=== PATIENT | male | born 2000 | race Caucasian/White ===

== ENCOUNTER 2021-11-09 02:08 | Emergency (ER) | payer MEDICAID, OTHER ==
[2021-11-09] MEDS ORDERED: diphenhydrAMINE 50 MG Cap PO ONE (02:33)
[2021-11-09] MEDS ORDERED: methylPREDNISolone Sodium Succinate 125 MG/2 ML SDV IM ONE (02:33)
== END 2021-11-09 03:22 | disposition home or self-care (01) ==
LOC: FB.ED 02:08
DX: L30.9 Dermatitis, unspecified (principal)
CPT/HCPCS: 96372; 99282; A9270-GY; J2930